=== PATIENT | male | born 1930 | race Caucasian/White ===

== ENCOUNTER → 2016-12-19 | Outpatient (CLI) | payer MEDICARE, BC ==
[2016-12-19 17:09] LABS: Blood Urea Nitrogen 21 mg/dL (9-20)
[2016-12-19 17:14] LABS: Non-African American GFR(MDRD) >60 (>60 ml/min/1.73 sqM)
--- NOTE | 2016-12-20 08:21 | CT ---
EXAMINATION TYPE: CT ChestAbdPelvis w con DATE OF EXAM: 12/19/2016 COMPARISON: NONE HISTORY: Approximately 30 lb weight loss x [address] DLP: 1123.00 mGycm Automated exposure control for dose reduction was used. CONTRAST: CT scan of the chest, abdomen and pelvis is performed with Oral Contrast and with IV Contrast, patien t injected with 100 mL of Omnipaque 300. FINDINGS: LUNGS: Bandlike parenchymal densities at the left lung base likely reflects scarring. No pleural or p ericardial effusion. Soft tissue nodule within the right middle lobe on axial image 40 measures appro ximately 5 to 6 mm, additional right upper lobe nodule on axial image 30 shows a similar appearance. Probable retained secretions noted within the trachea on axial image 17. MEDIASTINUM: There are no greater than 1 cm hilar or mediastinal lymph nodes. Calcified subcarinal no de is present. No pericardial effusion is seen. AORTA: There are coronary artery calcifications, aortic calcifications. OTHER: Patient is post median sternotomy. Mild pectus deformity is present. LIVER/GB: Cystic foci are present within the liver, the largest in the left lobe measures 2.7 cm. The re are approximately 4-5 in number. Gallbladder is unremarkable. PANCREAS: No significant abnormality is seen. SPLEEN: No significant abnormality is seen. ADRENALS: No significant abnormality is seen. KIDNEYS: Cystic foci are present bilaterally, 4.1 cm exophytic cyst at the midpole and the left kidne y is somewhat lobular, lower pole cystic focus measures 19 mm, upper pole anteriorly shows a cystic f ocus measuring 12 mm.. The right kidney shows midpole exophytic cystic focus measuring 2.8 cm. No sto kun or hydronephrosis. REPRODUCTIVE ORGANS: The prostate is markedly enlarged and shows an inferior impression on the bladde r. BOWEL: Nonspecific wall thickening present at the distal rectum. Diverticular change present in the sigmoid colon. FREE AIR: No Free Air visible. ASCITES: None seen. RETROPERITONEAL ADENOPATHY: No retroperitoneal adenopathy is seen. LYMPH NODES: No greater than 1 cm abdominal or pelvic lymph nodes are appreciated. URINARY BLADDER: There is bladder wall thickening presumably due to chronic outlet obstruction. Sweetie elate to exclude cystitis. PELVIC ADENOPATHY: None visualized. OSSEOUS STRUCTURES: Degenerative disc changes, spinal curvature noted in the visualized spine. Some mild osteoarthritic change noted within the hips. IMPRESSION: Correlate to exclude abnormal thickening of the rectum, bowel surveillance has not been p erformed then it should be considered. Diverticulosis. Coronary artery disease. Indeterminate pulmona ry nodules could be related to old granulomatous disease, consider follow-up. Additional findings abo ve.
== END | disposition home or self-care (01) ==
LOC: RADCTMAIN 16:24
PROVIDERS: ATTEND Internal Medicine
DX: K57.90 Diverticulosis of intestine, part unspecified, without perforation or abscess without bleeding (principal); I25.10 Atherosclerotic heart disease of native coronary artery without angina pectoris
CPT/HCPCS: 82565; 84520; 71260; 74177; 36415; Q9967

== ENCOUNTER → 2016-12-29 | Outpatient (CLI) | payer MEDICARE, BC ==
--- NOTE | 2016-12-29 16:04 | US ---
EXAMINATION TYPE: US kidneys/renal and bladder DATE OF EXAM: 12/29/2016 COMPARISON: CT chest abdomen and pelvis dated 817. CLINICAL HISTORY: N28.1 Multiple renal cysts. Patient had recent CT due to unexplained weight loss an d found multiple renal cysts, patient has no symptoms related to cysts. EXAM MEASUREMENTS: Right Kidney: 9.0 x 4.7 x 4.8 cm Left Kidney: 9.6 x 4.9 x 4.4 cm Right Kidney: multiple cysts seen, largest inferior pole = 2.5cm Left Kidney: multiple cyst seen, largest midpole exophytic cyst = 3.0cm Bladder: wnl Bilateral Jets seen: no There is no evidence for hydronephrosis at this point in time. No nephrolithiasis is seen. No alida s are identified. The urinary bladder is anechoic. Bilateral ureteral jets are seen. IMPRESSION: Bilateral cortical renal cysts as seen on the prior CT with no evidence of hydronephrosis or nephroli thiasis.
== END | disposition home or self-care (01) ==
LOC: RADUSWWP 14:44
PROVIDERS: ATTEND Internal Medicine
DX: N28.1 Cyst of kidney, acquired (principal)
CPT/HCPCS: 76770

== ENCOUNTER → 2017-02-12 | Outpatient (CLI) | payer MEDICARE, BC ==
--- NOTE | 2017-02-12 15:03 | NM ---
EXAMINATION TYPE: NM bone scan whole body DATE OF EXAM: 02/12/2017 COMPARISON: CT chest abdomen and pelvis December 19, 2016 HISTORY: Abnormal unexplained weight loss (R 63.4) per order. Left-sided rib pain with deep inspirati on per patient, history of fall injury one week ago per patient. Delayed whole-body scanning was performed following the injection of 19.5 mCi Tc 99m MDP. Images acq uired 3.75 hours post injection. Whole body images as well as spot images of the thorax abdomen and p jazzy are acquired in several projections. FINDINGS: There is increased radiotracer uptake involving lateral left lower likely ninth rib, acute fracture i s suspected given patient's history at this level. Correlate clinically with physical exam and possib ly dedicated rib series x-ray if desired. There is slight scoliotic curvature in the spine redemonstrated. Mild uptake at areas in the thoracic and lumbar spine is felt to correspond to areas of increased degenerative change. Injection site in the right elbow is noted. IMPRESSION: No suspicious scintigraphic radiotracer uptake to suggest metastatic disease to the bone. Other findings as noted above.
== END ==
LOC: RADNMMAIN 09:58
PROVIDERS: ATTEND Internal Medicine
DX: R63.4 Abnormal weight loss (principal)
CPT/HCPCS: 78306; A9503

== ENCOUNTER 2018-02-20 18:48 | Inpatient (IN) | payer MEDICARE, BC ==
[2018-02-20] MEDS ORDERED: SODIUM CHLORIDE 0.9% 500 ML 500 ML IV STA (19:20)
--- NOTE | 2018-02-20 19:29 | ED ---
SOB HPI - General Source: patient Mode of arrival: ambulatory Limitations: no limitations <Gisele Townsend - Last Filed: 02/20/18 22:55> <Simba Bermudez - Last Filed: 02/22/18 08:06> - General Chief Complaint: Shortness of Breath Stated Complaint: ashley, lethargy Time Seen by Provider: 02/20/18 18:56 - History of Present Illness Initial Comments: 87-year-old male patient with past medical history significant for coronary artery disease status post CABG and subsequent stenting presents to the emergency department today for complaints of progressive dyspnea. The patient states that he has been having increased shortness of breath over the last month and 2 weeks ago was diagnosed with pneumonia. States he has completed 2 courses of antibiotics and has been following with his primary care physician but he seems to be getting worse. Patient states he initially was having a cough that has resolved. Patient states he does not have an appetite and has been becoming more weak. Patient denies any chest pain, abdominal pain, nausea , vomiting, constipation, or diarrhea. Denies any hematuria, dysuria, urinary frequency, urinary urgency. Patient denies any recent rash, fever, chills, back pain, numbness, tingling, dizziness, headache, visual changes, or any other complaints. (Gisele Townsend) - Related Data Home Medications Medication Instructions Recorded Confirmed Aspirin 325 mg PO HS 02/20/18 02/20/18 Levothyroxine Sodium 100 mcg PO DAILY 02/20/18 02/20/18 Memantine [Namenda] 10 mg PO BID 02/20/18 02/20/18 Multivitamins, Thera [Multivitamin 1 tab PO HS 02/20/18 02/20/18 (formulary)] [employer]-3 Fatty Acids/Fish Oil [Fish 1 cap PO BID 02/20/18 02/20/18 Oil 1,000 mg Softgel] Sertraline HCl [Zoloft] 25 mg PO DAILY 02/20/18 02/20/18 Vision Vitamin(Unknown) 1 tab PO BID 02/20/18 02/20/18 Allergies Allergy/AdvReac Type Severity Reaction Status Date / Time No Known Allergies Allergy Unverified 02/20/18 19:29 Review of Systems ROS Other: All systems not noted in ROS Statement are negative. <Gisele Townsend - Last Filed: 02/20/18 22:55> ROS Other: All systems not noted in ROS Statement are negative. <Simba Bermudez - Last Filed: 02/22/18 08:06> ROS Statement: Those systems with pertinent positive or pertinent negative responses have been documented in the HPI. Past Medical History Past Medical History: Coronary Artery Disease (CAD), Pneumonia History of Any Multi-Drug Resistant Organisms: None Reported Past Surgical History: Coronary Bypass/CABG, Heart Catheterization, Heart Catheterization With Stent Past Psychological History: No Psychological Hx Reported Smoking Status: Former smoker Past Alcohol Use History: None Reported Past Drug Use History: None Reported <Gisele Townsend - Last Filed: 02/20/18 22:55> General Exam Limitations: no limitations General appearance: alert, in no apparent distress, other (This is a well- developed, thin appearing elderly male patient in no acute distress. Vital signs upon presentation are temperature 98.0 degrees Fahrenheit, pulse 61, respirations 22, blood pressure 142/75, pulse ox 98% on room air.) Eye exam: Present: normal appearance, PERRL, EOMI. Absent: scleral icterus, conjunctival injection, periorbital swelling ENT exam: Present: normal exam, normal oropharynx, mucous membranes moist Respiratory exam: Present: normal lung sounds bilaterally. Absent: respiratory distress, wheezes, rales, rhonchi, stridor Cardiovascular Exam: Present: regular rate, irregular rhythm, normal heart sounds. Absent: systolic murmur, diastolic murmur, rubs, gallop, clicks GI/Abdominal exam: Present: soft, normal bowel sounds. Absent: distended, tenderness, guarding, rebound, rigid Neurological exam: Present: alert, oriented X3, CN II-XII intact Psychiatric exam: Present: normal affect, normal mood Skin exam: Present: warm, dry, intact, normal color. Absent: rash <Gisele Townsend - Last Filed: 02/20/18 22:55> Vital Signs 02/20/18 02/20/18 02/20/18 18:51 19:55 21:10 Temperature 98.0 F Pulse Rate 61 52 L Respiratory 22 18 19 Rate Blood Pressure 142/75 143/73 O2 Sat by Pulse 98 100 Oximetry 02/20/18 22:10 Temperature Pulse Rate 58 L Respiratory 18 Rate Blood Pressure 158/98 O2 Sat by Pulse 99 Oximetry Medical Decision Making - Lab Data Result diagrams: 02/20/18 19:46 02/20/18 19:46 - EKG Data -: EKG Interpreted by Me - Radiology Data Radiology results: report reviewed, image reviewed <Gisele Townsend - Last Filed: 02/20/18 22:55> - Lab Data Result diagrams: 02/20/18 19:46 02/20/18 19:46 <Simba Bermudez - Last Filed: 02/22/18 08:06> - Medical Decision Making 87-year-old male patient presented to the emergency department today for evaluation of progressive dyspnea. Physical examination is relatively unremarkable. Labs reviewed and are unremarkable. Chest x-ray showed mild infiltrate in the left posterior lung base. Patient has been treated with 2 courses of antibiotics by his primary care physician for pneumonia. Given evidence of pneumonia on x-ray we will bring patient in to the hospital and treat for failed outpatient treatment community acquired pneumonia. Did discuss findings and results with the patient. Discussed plan with the patient. Family and patient verbalize understanding and agree with this plan. (Gisele Townsend) I saw this patient in conjunction with the physician advertising assistant manager. I performed independent history and physical exam. Agree with case management. (Simba Bermudez) - Lab Data Lab Results 02/20/18 02/20/18 02/20/18 Range/Units 19:46 19:46 19:46 WBC 7.4 (3.8-10.6) k/uL RBC 3.75 L (4.30-5.90) m/uL Hgb 11.8 L (13.0-17.5) gm/dL Hct 35.5 L (39.0-53.0) % MCV 94.7 (80.0-100.0) fL MCH 31.4 (25.0-35.0) pg MCHC 33.2 (31.0-37.0) g/dL RDW 13.1 (11.5-15.5) % Plt Count 326 (150-450) k/uL Neutrophils % 59 % Lymphocytes % 28 % Monocytes % 7 % Eosinophils % 2 % Basophils % 1 % Neutrophils # 4.4 (1.3-7.7) k/uL Lymphocytes # 2.0 (1.0-4.8) k/uL Monocytes # 0.5 (0-1.0) k/uL Eosinophils # 0.2 (0-0.7) k/uL Basophils # 0.1 (0-0.2) k/uL PT (9.0-12.0) sec INR (<1.2) APTT (22.0-30.0) sec D-Dimer (<0.60) mg/L FEU Sodium 141 (137-145) mmol/L Potassium 4.9 (3.5-5.1) mmol/L Chloride 107 (98-107) mmol/L Carbon Dioxide 27 (22-30) mmol/L Anion Gap 7 mmol/L BUN 21 H (9-20) mg/dL Creatinine 1.21 (0.66-1.25) mg/dL Est GFR (CKD-EPI)AfAm 61 (>60 ml/min/1.73 sqM) Est GFR (CKD-EPI)NonAf 53 (>60 ml/min/1.73 sqM) Glucose 83 (74-99) mg/dL Calcium 10.0 (8.4-10.2) mg/dL Total Bilirubin 0.3 (0.2-1.3) mg/dL AST 22 (17-59) U/L ALT 18 L (21-72) U/L Alkaline Phosphatase 63 (38-126) U/L Total Creatine Kinase 42 L (55-170) U/L CK-MB (CK-2) 0.6 (0.0-2.4) ng/mL CK-MB (CK-2) Rel Index 1.4 Troponin I 0.019 (0.000-0.034) ng/mL NT-Pro-B Natriuret Pep pg/mL Total Protein 6.7 (6.3-8.2) g/dL Albumin 3.6 (3.5-5.0) g/dL Urine Color Urine Appearance (Clear) Urine pH (5.0-8.0) Ur Specific [place] (1.001-1.035) Urine Protein (Negative) Urine Glucose (UA) (Negative) Urine Ketones (Negative) Urine Blood (Negative) Urine Nitrite (Negative) Urine Bilirubin (Negative) Urine Urobilinogen (<2.0) mg/dL Ur Leukocyte Esterase (Negative) 02/20/18 02/20/18 02/20/18 Range/Units 19:46 19:46 21:20 WBC (3.8-10.6) k/uL RBC (4.30-5.90) m/uL Hgb (13.0-17.5) gm/dL Hct (39.0-53.0) % MCV (80.0-100.0) fL MCH (25.0-35.0) pg MCHC (31.0-37.0) g/dL RDW (11.5-15.5) % Plt Count (150-450) k/uL Neutrophils % % Lymphocytes % % Monocytes % % Eosinophils % % Basophils % % Neutrophils # (1.3-7.7) k/uL Lymphocytes # (1.0-4.8) k/uL Monocytes # (0-1.0) k/uL Eosinophils # (0-0.7) k/uL Basophils # (0-0.2) k/uL PT 10.4 (9.0-12.0) sec INR 1.1 (<1.2) APTT 26.6 (22.0-30.0) sec D-Dimer 0.31 (<0.60) mg/L FEU Sodium (137-145) mmol/L Potassium (3.5-5.1) mmol/L Chloride (98-107) mmol/L Carbon Dioxide (22-30) mmol/L Anion Gap mmol/L BUN (9-20) mg/dL Creatinine (0.66-1.25) mg/dL Est GFR (CKD-EPI)AfAm (>60 ml/min/1.73 sqM) Est GFR (CKD-EPI)NonAf (>60 ml/min/1.73 sqM) Glucose (74-99) mg/dL Calcium (8.4-10.2) mg/dL Total Bilirubin (0.2-1.3) mg/dL AST (17-59) U/L ALT (21-72) U/L Alkaline Phosphatase (38-126) U/L Total Creatine Kinase (55-170) U/L CK-MB (CK-2) (0.0-2.4) ng/mL CK-MB (CK-2) Rel Index Troponin I (0.000-0.034) ng/mL NT-Pro-B Natriuret Pep 886 pg/mL Total Protein (6.3-8.2) g/dL Albumin (3.5-5.0) g/dL Urine Color Yellow Urine Appearance Clear (Clear) Urine pH 7.0 (5.0-8.0) Ur Specific [place] 1.009 (1.001-1.035) Urine Protein Negative (Negative) Urine Glucose (UA) Negative (Negative) Urine Ketones Negative (Negative) Urine Blood Negative (Negative) Urine Nitrite Negative (Negative) Urine Bilirubin Negative (Negative) Urine Urobilinogen <2.0 (<2.0) mg/dL Ur Leukocyte Esterase Negative (Negative) - EKG Data EKG Comments: EKG obtained in 1935 shows sinus rhythm with a first-degree AV block, right bundle branch block, ventricular rate of 62, W[place] interval 378, QRS duration 122, QT 444, QTC 450. No evidence of ST elevation or depression. (Gisele Townsend ) - Radiology Data Two-view x-ray of the chest is obtained. This no heart failure nor confluent pneumonic infiltrate. There is some mild infiltrate at the left posterior lung base. Lungs are clear consolidation. There are sternal wires. There are chest leads. Impression by Dr. Schaeffer shows small infiltrate or pleural reaction at the left posterior lung base. No heart failure. (Gisele Townsend ) Disposition Decision to Admit Reason: Admit from EC Decision Date: 02/20/18 Decision Time: 21:48 <Gisele Townsend - Last Filed: 02/20/18 22:55> <Simba Bermudez - Last Filed: 02/22/18 08:06> Clinical Impression: Community acquired pneumonia, Failure of outpatient treatment, Dyspnea Disposition: ADMITTED IP TO THIS HOSP Condition: Serious
[2018-02-20 19:58] LABS: Basophils # (A) 0.1 k/uL (0-0.2); Basophils % (A) 1 %; Eosinophils # (A) 0.2 k/uL (0-0.7); Eosinophils % (A) 2 %; HCT 35.5 % (39.0-53.0); HGB 11.8 gm/dL (13.0-17.5); Lymphocytes % (A) 28 %; MCH 31.4 pg (25.0-35.0); MCHC 33.2 g/dL (31.0-37.0); MCV 94.7 fL (80.0-100.0); Mean Platelet Volume 6.4; Monocytes # (A) 0.5 k/uL (0-1.0); Monocytes % (A) 7 %; Neutrophils # (A) 4.4 k/uL (1.3-7.7); Neutrophils % (A) 59 %; Platelet Count 326 k/uL (150-450); RBC 3.75 m/uL (4.30-5.90); RDW 13.1 % (11.5-15.5); WBC 7.4 k/uL (3.8-10.6)
[2018-02-20 20:07] LABS: Albumin 3.6 g/dL (3.5-5.0); Potassium 4.9 mmol/L (3.5-5.1); Total Bilirubin 0.3 mg/dL (0.2-1.3); Total Protein 6.7 g/dL (6.3-8.2)
[2018-02-20 20:13] LABS: D-Dimer 0.31 mg/L FEU (<0.60); INR 1.1 (<1.2); Partial Thromboplastin Time 26.6 sec (22.0-30.0); Prothrombin Time 10.4 sec (9.0-12.0)
--- NOTE | 2018-02-20 20:13 | XR ---
EXAMINATION TYPE: XR chest 2V DATE OF EXAM: 02/20/2018 COMPARISON: NONE HISTORY: Short of breath TECHNIQUE: Frontal and lateral views of the chest are obtained. FINDINGS: There is no heart failure nor confluent pneumonic infiltrate. There is some mild infiltrat e at left posterior lung base. Lungs are clear of consolidation. There are sternal wires. There are c hest leads. IMPRESSION: Small infiltrate or pleural reaction at the left posterior lung base. No heart failure.
[2018-02-20 20:22] LABS: Creatine Kinase MB 0.6 ng/mL (0.0-2.4); Troponin I 0.019 ng/mL (0.000-0.034)
[2018-02-20 21:26] LABS: Appearance,Urine Clear (Clear); Bilirubin,Urine Negative (Negative); Blood,Urine Negative (Negative); Color,Urine Yellow; Glucose,Urine (UA) Negative (Negative); Ketones,Urine Negative (Negative); Leukocyte Esterase,Urine Negative (Negative); Nitrite,Urine Negative (Negative); Protein,Urine Negative (Negative); Specific Gravity,Urine 1.009 (1.001-1.035); Urobilinogen,Urine <2.0 mg/dL (<2.0)
[2018-02-20] MEDS ORDERED: AZITHROMYCIN 500 MG in SODIUM CHLORIDE 0.9% 250 ML IVPB STA (21:38)
[2018-02-20] MEDS ORDERED: PNEUMONIA PROTOCOL UTILIZED 1 EACH MISC PO PRN (21:38)
[2018-02-21 04:40] VITALS: BMI 17.1
[2018-02-21] MEDS: LEVOTHYROXINE 100 MCG TAB PO SCH (05:44)
[2018-02-21] MEDS: MEMANTINE 10 MG TAB PO SCH ×2 (08:51→20:58)
[2018-02-21] MEDS: SERTRALINE 25 MG TAB PO SCH (08:52)
[2018-02-21] MEDS ORDERED: NON-FORMULARY DRUG (Omega-3 Fatty Acids/Fish Oil [Fish Oil 1,000 Mg Softgel] 1 CAP) PO SCH (09:00)
--- NOTE | 2018-02-21 14:23 | P.CNPUL ---
History of Present Illness Consult date: 02/21/18 Requesting physician: Malcolm Mcknight Reason for consult: dyspnea, abnormal CXR/CT Chief complaint: Shortness of breath, cough, congestion History of present illness: This is a very pleasant 87-year-old gentleman who follows with Dr. Benavidez as his primary care physician. He has a history of coronary artery disease with previous coronary artery bypass grafting and subsequent stent placements, hypothyroidism, dementia, depression. He has a very remote history of chronic tobacco dependence. No history of COPD/emphysema/asthma. A computed tomography scan from 2017 revealed indeterminate pulmonary nodules in the right middle and upper lobes related to old granulomatous disease. There was bandlike parenchymal densities in the left lung base likely reflecting scarring. He has not been seen by a [facility] consultant in the past. Over the past month he has been having progressive shortness of breath with cough and congestion. He's been treated 2 in the outpatient setting by his PCP without much improvement. He presented here to the emergency room with continued shortness of breath, dry nonproductive cough, progressive weakness and dyspnea on minimal exertion. He is quite active normally and walks 5 miles a day. Now he is quite short of breath just been up to the bathroom and back. Chest x-ray shows a small infiltrate or pleural reaction to the left posterior lung base which is similar compared to previous. No areas of consolidation. He is maintaining O2 saturations in the 90s on room air. He's been afebrile. Hemodynamically stable. White count 7.4. Hemoglobin 11.5. Creatinine 1.21. ProBNP 886. Urinalysis negative. He has been initiated on ceftriaxone and azithromycin. Review of Systems Constitutional: Reports fatigue, Reports poor appetite, Reports weakness Eyes: bilateral decreased vision Ears: bilateral: decreased hearing Ears, nose, mouth and throat: Denies headache, Denies sore throat Cardiovascular: Reports decreased exercise tolerance, Reports dyspnea on exertion, Reports shortness of breath Respiratory: Reports congestion, Reports cough, Reports dyspnea Gastrointestinal: Denies abdominal pain, Denies diarrhea, Denies nausea, Denies vomiting Genitourinary: Reports as per HPI Musculoskeletal: Reports gait dysfunction, Reports limitation of motion Integumentary: Reports color changes Neurological: Reports gait dysfunction, Reports memory loss Psychiatric: Reports anxiety, Reports depression, Reports memory loss Endocrine: Denies fatigue, Denies weight change Hematologic/Lymphatic: Reports as per HPI Allergic/Immunologic: Reports as per HPI Past Medical History Past Medical History: Coronary Artery Disease (CAD), Pneumonia Additional Past Medical History / Comment(s): Hard of hearing (make sure you face patient when talking/he can see your mouth, otherwise he can't hear you). History of Any Multi-Drug Resistant Organisms: None Reported Past Surgical History: Coronary Bypass/CABG, Heart Catheterization With Stent Additional Past Surgical History / Comment(s): Thymus gland removal, heart cath w/ 2 stents (while in [place]). Past Anesthesia/Blood Transfusion Reactions: No Reported Reaction Date of Last Stent Placement:: Unknown Past Psychological History: No Psychological Hx Reported Smoking Status: Former smoker Past Alcohol Use History: None Reported Additional Past Alcohol Use History / Comment(s): Pt. lives at home with . Goes to [place] [facility] for regular doctor visits. Able to carry out ADLs independently. Past Drug Use History: None Reported Medications and Allergies Home Medications Medication Instructions Recorded Confirmed Type Aspirin 325 mg PO HS 02/20/18 02/20/18 History Levothyroxine Sodium 100 mcg PO DAILY 02/20/18 02/20/18 History Memantine [Namenda] 10 mg PO BID 02/20/18 02/20/18 History Multivitamins, Thera [Multivitamin 1 tab PO HS 02/20/18 02/20/18 History (formulary)] [place]-3 Fatty Acids/Fish Oil [Fish 1 cap PO BID 02/20/18 02/20/18 History Oil 1,000 mg Softgel] Sertraline HCl [Zoloft] 25 mg PO DAILY 02/20/18 02/20/18 History Vision Vitamin(Unknown) 1 tab PO BID 02/20/18 02/20/18 History Allergies Allergy/AdvReac Type Severity Reaction Status Date / Time No Known Allergies Allergy Unverified 02/20/18 19:29 Physical Exam Vitals: Vital Signs Temp Pulse Pulse Resp BP BP Pulse Ox 02/21/18 06:18 97.1 F L 56 L 20 115/56 96 02/21/18 00:00 96 02/20/18 23:31 98.6 F 72 18 138/96 97 02/20/18 22:10 58 L 18 158/98 99 02/20/18 21:10 19 02/20/18 19:55 52 L 18 143/73 100 02/20/18 18:51 98.0 F 61 22 142/75 98 Intake and Output 02/20/18 02/21/18 02/21/18 22:59 06:59 14:59 Intake Total 100 Balance 100 Intake: Oral 100 Other: Voiding Method Toilet Urinal Weight 53.524 kg 52.5 kg 52.5 kg - Constitutional General appearance: average body habitus, cooperative, mild distress - EENT Eyes: EOMI, PERRLA ENT: hard of hearing Ears: bilateral: normal - Neck Neck: normal ROM Carotids: bilateral: upstroke normal Thyroid: bilateral: normal size - Respiratory Respiratory: bilateral: CTA - Cardiovascular Rhythm: regular Heart sounds: normal: S1, S2 - Gastrointestinal General gastrointestinal: normal bowel sounds - Genitourinary Voiding without difficulty - Integumentary Integumentary: decreased turgor - Neurologic Neurologic: CNII-XII intact - Musculoskeletal Musculoskeletal: generalized weakness - Psychiatric Psychiatric: A&O x's 3, appropriate affect, intact judgment & insight Results - Laboratory Findings CBC and BMP: 02/20/18 19:46 02/20/18 19:46 PT/INR, D-dimer PT 10.4 sec (9.0-12.0) 02/20/18 19:46 INR 1.1 (<1.2) 02/20/18 19:46 D-Dimer 0.31 mg/L FEU (<0.60) 02/20/18 19:46 Abnormal lab findings: Abnormal Labs 02/20/18 02/20/18 02/20/18 19:46 19:46 19:46 RBC 3.75 L Hgb 11.8 L Hct 35.5 L BUN 21 H ALT 18 L Total Creatine Kinase 42 L - Diagnostic Findings Chest x-ray: image reviewed Assessment and Plan Assessment: Impression: #1 Dyspnea on exertion of unclear etiology. The patient does have some parenchymal/scarring of the left lung base. Doubt pneumonia. He's been afebrile. No leukocytosis. Failed outpatient treatment 2. Chronic changes noted in the left lung base on a computed tomography scan 1 year ago. #2 Pulmonary nodules in the right mid and upper lobe noted in 2017. #3 Coronary artery disease with previous coronary artery bypass grafting and stent placements. #4 Ischemic cardiomyopathy with ejection fraction 40-45% in 2014. ProBNP 886. #5 Hypothyroidism. #6 Dementia. #7 History of depression. Plan: The patient was seen and evaluated by Dr. Guajardo. Chest x-ray and labs reviewed. He may benefit from a repeat computed tomography scan of the chest. We'll continue ceftriaxone and azithromycin. Add bronchodilators. Increase his activity as tolerated. We'll continue to follow. I, the cosigning physician, performed a history & physical examination of the patient. Lungs sounds are clear. Maintaining good O2 saturations in the 90s on room air. I discussed the assessment and plan of care with my nurse practitioner, Briana North. I attest to the above consultation as dictated by her. Time with Patient: Greater than 30
--- NOTE | 2018-02-21 15:08 | XR ---
EXAMINATION TYPE: XR chest 2V DATE OF EXAM: 02/21/2018 COMPARISON: Chest x-ray from yesterday. CT from December 19, 2016. HISTORY: Pneumonia progress study. TECHNIQUE: Frontal and lateral views of the chest are obtained. FINDINGS: Post-CABG changes with mediastinal clips and sternal wires is redemonstrated. The cardiac s ilhouette size is stable and upper limits of normal with atherosclerotic thoracic aorta. There is pe rsistent left basilar opacity favoring scarring and/or atelectasis. There is no new suspicious focal airspace opacity or pleural effusion identified bilaterally. Some pleural scarring left lung base is redemonstrated. Background chronic emphysematous change is noted. Old fracture deformity right proxim al humerus is suspected. IMPRESSION: Chronic changes with persistent left basilar scarring and/or atelectasis. No new acute i nfiltrate is seen.
--- NOTE | 2018-02-21 18:34 | ECHOF ---
Referral Reason:Dypnea MEASUREMENTS -------- HEIGHT: 175.3 cm WEIGHT: 52.2 kg BP: 149/4 RVIDd: 3.2 cm (< 3.3) IVSd: 1.2 cm (0.6 - 1.1) LVIDd: 4.3 cm (3.9 - 5.3) LVPWd: 1.2 cm (0.6 - 1.1) IVSs: 1.7 cm LVIDs: 3.5 cm LVPWs: 1.7 cm LA Diam: 3.8 cm (2.7 - 3.8) LAESV Index (A-L): 32.12 ml/m Ao Diam: 3.5 cm (2.0 - 3.7) AV Cusp: 1.8 cm (1.5 - 2.6) MV EXCURSION: 16.920 mm (> 18.000) MV EF SLOPE: 50 mm/s (70 - 150) EPSS: 1.3 cm MV E Nathan: 0.81 m/s MV DecT: 212 ms MV A Nathan: 1.00 m/s MV E/A Ratio: 0.81 AV maxP.40 mmHg AV maxP.40 mmHg AV meanP.52 mmHg AR PHT: 735 ms RAP: 5.00 mmHg RVSP: 27.36 mmHg FINDINGS -------- Undetermined rhythm. This was a technically adequate study. The left ventricular size is normal. There is borderline concentric left ventricular hypertrophy. Overall left ventricular systolic function is moderately impaired with, an EF between 35 - 40 %. B aneesh inferior LV wall motion is akinetic. The right ventricle is normal in size. LA is midly dilated 29-33ml/m2. The right atrium is normal in size. There is mild aortic valve sclerosis. Trace to mild aortic regurgitation. The mitral valve leaflets are mildly thickened. Mild mitral annular calcification present. Mild m itral regurgitation is present. Mild tricuspid regurgitation present. Right ventricular systolic pressure is normal at < 35 mmHg. Trace/mild (physiologic) pulmonic regurgitation. The aortic root size is normal. Normal inferior vena cava with normal inspiratory collapse consistent with estimated right atrial pre ssure of 5 mmHg. There is no pericardial effusion. CONCLUSIONS -------- 1. Undetermined rhythm. 2. This was a technically adequate study. 3. The left ventricular size is normal. 4. There is borderline concentric left ventricular hypertrophy. 5. The right ventricle is normal in size. 6. LA is midly dilated 29-33ml/m2. 7. The right atrium is normal in size. 8. There is mild aortic valve sclerosis. 9. Trace to mild aortic regurgitation. 10. The mitral valve leaflets are mildly thickened. 11. Mild mitral annular calcification present. 12. Mild mitral regurgitation is present. 13. Mild tricuspid regurgitation present. 14. Right ventricular systolic pressure is normal at < 35 mmHg. 15. Trace/mild (physiologic) pulmonic regurgitation. 16. The aortic root size is normal. 17. Normal inferior vena cava with normal inspiratory collapse consistent with estimated right atrial pressure of 5 mmHg. 18. There is no pericardial effusion. BARREL MARKER: Serina Gomez RDCS
--- NOTE | 2018-02-21 18:54 | NM ---
EXAMINATION TYPE: NM pul vent and perfuse DATE OF EXAM: 02/21/2018 COMPARISON: NONE HISTORY: Short of breath TECHNIQUE: Utilizing inhalation of 69.2 mCi Tc 99m DTPA aerosol and intravenous injection of 5.1 mCi of Tc 99m MAA, ventilation and perfusion images are acquired post injection in multiple projections. FINDINGS: There is a matched subsegmental defect in the posterior basal segment left lower lobe. There are smal l subsegmental matched defects at the right posterior lung base. There is no ventilation/perfusion mi smatch. IMPRESSION: Bilateral matched defects consistent with airway disease. There is a low probability of pulmonary emb olism.
[2018-02-21] MEDS: MULTIVITAMINS, THERA 1 EACH TAB PO SCH (20:58)
[2018-02-21] MEDS ORDERED: ASPIRIN 325 MG TAB PO SCH (21:00)
[2018-02-21] MEDS ORDERED: LACTATED RINGERS 1,000 ML IV SCH (21:15)
[2018-02-21] MEDS: IPRATROPIUM-ALBUTEROL 3 ML NEB INHALATION SCH (21:23)
[2018-02-21] MEDS: ENOXAPARIN 40 MG/0.4 ML SYRINGE SQ SCH (21:49)
[2018-02-21] MEDS: CARVEDILOL 3.125 MG TAB PO SCH (21:50)
[2018-02-21] MEDS: CEFDINIR 300 MG CAP PO SCH (21:50)
[2018-02-21] MEDS ORDERED: AZITHROMYCIN 500 MG TAB PO SCH (22:00)
--- NOTE | 2018-02-22 00:02 | HP ---
HISTORY AND PHYSICAL DATE OF ADMISSION: 02/20/2018. DATE OF SERVICE: 02/21/2018. PRESENTING COMPLAINT: Weak and tired. HISTORY OF PRESENTING COMPLAINT: A very pleasant 87-year-old patient who follows with Dr. David Benavidez. 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 The patient is otherwise normally pretty active. The patient was treated with Levaquin by Dr. Benavidez. The patient had been having cough, minimal phlegm. No fever. No chills. Appetite had been okay, but patient is noticing that he is getting really tired going across the room, run down. There were no fevers, no chills, no edema. When patient presented to the ER he got some fluids and did feel a bit better after that. Appetite has started to perk up. The patient's daughter was at the bedside during the history taking. No sputum production. REVIEW OF SYSTEMS: CONSTITUTIONAL: Weak and tired. HEENT: Hard of hearing. RESPIRATORY: No phlegm. As above. CARDIOVASCULAR: No chest pain. No edema. GASTROINTESTINAL: None. GENITOURINARY: None. MUSCULOSKELETAL: Some pain in the joints. DERMATOLOGICAL, HEMATOLOGIC, LYMPHATICS: None. PSYCHIATRY: None. NEUROLOGICAL: None. PAST MEDICAL HISTORY: Coronary artery disease, recent pneumonia, hard of hearing. PAST SURGICAL HISTORY: Coronary bypass, cardiac cath with stent, removed, heart cath with 2 stents in [place]. SOCIAL HISTORY: . Smoked in the remote past. Rather pretty active. FAMILY HISTORY: Reviewed, noncontributory to presentation. HOME MEDICATIONS: 1. Vision vitamin 1 tablet p.o. b.i.d. 2. Zoloft 25 mg p.o. daily. 3. Fish oil 1000 mg 1 capsule p.o. b.i.d. 4. Multivitamin 1 tablet p.o. at bedtime. 5. Namenda 10 mg p.o. b.i.d. 6. Levothyroxine 100 mcg p.o. daily. 7. Aspirin 325 mg p.o. at bedtime. ALLERGIES: None. PHYSICAL EXAMINATION: VITAL SIGNS: On examination, vital signs on presentation, temperature 98, pulse 61, respiration 22, blood pressure 142/75, pulse ox 98% on room air. GENERAL APPEARANCE: General appearance. BMI 17.1. Lying in bed, tired-appearing. EYES: Pupils equal. Conjunctivae normal. HEENT: External ears and nose normal. Oral cavity normal. NECK: JVD not raised. Mass not palpable. Respiratory effort normal. LUNGS: Decreased breath sounds. CARDIOVASCULAR: 1st and 2nd sounds normal. No edema. ABDOMEN: Soft, nontender. Liver and spleen not palpable. LYMPHATIC: No lymph node palpable in the neck or axillae. PSYCHIATRY: Alert and oriented x3. Mood and affect normal. NEUROLOGIC: Pupils equal. Cranial nerves grossly intact. Power and sensation grossly intact. INVESTIGATIONS: White count 7.4, hemoglobin 11.8, potassium 4.9, BUN 21, creatinine 1.29. V/Q scan shows bilateral match defects consistent with airway disease. The 2D echocardiogram shows EF of 35% to 40%. Chest x-ray film personally reviewed by me shows hyperinflation, no infiltrates. EKG tracing personally reviewed by me shows right bundle branch block. ASSESSMENT: 1. Possible acute emphysema exacerbation in a nonsmoker. Chest x-ray showing hyperinflation. The patient recently treated for pneumonia. The patient has got no sputum, no white, no fever. We will switch the patient over to oral antibiotic and treat with bronchodilator. 2. Coronary artery disease, prior history of coronary bypass. 3. Clinically dehydrated, elevated BUN, responding well to IV fluids. 4. Ischemic cardiomyopathy. BMI 35% to 40%. 5. Hypothyroidism. 6. 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 7. Depression, not otherwise specified. PLAN: We will start the patient on bronchodilators. Give gentle hydration. Will add a small dose of beta magdalena given the low ejection fraction and also a small dose of KIMANI inhibitor. Care was discussed with the daughter at the bedside. Questions were answered. MMODL / IJN: [id number] /
[2018-02-22] MEDS: LEVOTHYROXINE 100 MCG TAB PO SCH (06:02)
[2018-02-22] MEDS: IPRATROPIUM-ALBUTEROL 3 ML NEB INHALATION SCH ×4 (09:07→20:09)
[2018-02-22] MEDS: CARVEDILOL 3.125 MG TAB PO SCH ×2 (09:23→18:45)
[2018-02-22] MEDS: ASPIRIN 81 MG PO SCH (09:23)
[2018-02-22] MEDS: CEFDINIR 300 MG CAP PO SCH ×2 (09:23→20:48)
[2018-02-22] MEDS: MEMANTINE 10 MG TAB PO SCH ×2 (09:24→20:48)
[2018-02-22] MEDS: SERTRALINE 25 MG TAB PO SCH (09:24)
[2018-02-22] MEDS: LISINOPRIL 2.5 MG TAB PO SCH (09:24)
[2018-02-22 10:43] LABS: Calcium 9.2 mg/dL (8.4-10.2); Potassium 4.2 mmol/L (3.5-5.1)
--- NOTE | 2018-02-22 12:39 | P.PN ---
Subjective Progress Note Date: 02/22/18 Principal diagnosis: Dyspnea of unclear etiology This is a very pleasant 87-year-old gentleman who follows with Dr. Benavidez as his primary care physician. He has a history of coronary artery disease with previous coronary artery bypass grafting and subsequent stent placements, hypothyroidism, dementia, depression. He has a very remote history of chronic tobacco dependence. No history of COPD/emphysema/asthma. A computed tomography scan from 2017 revealed indeterminate pulmonary nodules in the right middle and upper lobes related to old granulomatous disease. There was bandlike parenchymal densities in the left lung base likely reflecting scarring. He has not been seen by a product marketing director in the past. Over the past month he has been having progressive shortness of breath with cough and congestion. He's been treated 2 in the outpatient setting by his PCP without much improvement. He presented here to the emergency room with continued shortness of breath, dry nonproductive cough, progressive weakness and dyspnea on minimal exertion. He is quite active normally and walks 5 miles a day. Now he is quite short of breath just been up to the bathroom and back. Chest x-ray shows a small infiltrate or pleural reaction to the left posterior lung base which is similar compared to previous. No areas of consolidation. He is maintaining O2 saturations in the 90s on room air. He's been afebrile. Hemodynamically stable. White count 7.4. Hemoglobin 11.5. Creatinine 1.21. ProBNP 886. Urinalysis negative. He has been initiated on ceftriaxone and azithromycin. The patient is seen again today 02/22/2018 in follow-up on the regular medical floor. He is awake and alert in no acute distress. He did have some trouble sleeping last night. Somewhat restless. Maintaining O2 saturations in the upper 90s on room air. He's been afebrile. Ventilation perfusion scan revealed low probability of pulmonary embolism. Two-dimensional echocardiogram revealed impaired left ventricular systolic function with ejection fraction 35-40%. He's been initiated on beta blockers and KIMANI inhibitor. Oral antibiotics in the form of Omnicef. Objective - Vital Signs Vital signs: Vital Signs Temp 97.8 F 02/22/18 06:28 Pulse 66 02/22/18 12:14 Resp 20 02/22/18 08:00 BP 158/73 02/22/18 06:28 Pulse Ox 98 02/22/18 09:09 Intake & Output 02/21/18 02/22/18 02/22/18 18:59 06:59 18:59 Intake Total 700 100 Balance 700 100 Weight 52.5 kg 52.5 kg Intake: Oral 700 100 Other: Voiding Method Toilet Toilet Urinal Urinal # Voids 2 2 1 - Exam - Constitutional General appearance: average body habitus, cooperative, mild distress - EENT Eyes: EOMI, PERRLA ENT: hard of hearing Ears: bilateral: normal - Neck Neck: normal ROM Carotids: bilateral: upstroke normal Thyroid: bilateral: normal size - Respiratory Respiratory: bilateral: CTA - Cardiovascular Rhythm: regular Heart sounds: normal: S1, S2 - Gastrointestinal General gastrointestinal: normal bowel sounds - Genitourinary Voiding without difficulty - Integumentary Integumentary: decreased turgor - Neurologic Neurologic: CNII-XII intact - Musculoskeletal Musculoskeletal: generalized weakness - Psychiatric Psychiatric: A&O x's 3, appropriate affect, intact judgment & insight - Labs CBC & Chem 7: 02/20/18 19:46 02/22/18 10:08 Labs: Microbiology - Last 24 Hours (Table) 02/20/18 19:46 Blood Culture - Preliminary Blood No Growth after 24 hours Assessment and Plan Assessment: Impression: #1 Dyspnea on exertion of unclear etiology. The patient does have some parenchymal/scarring of the left lung base. Doubt pneumonia. He's been afebrile. No leukocytosis. Failed outpatient treatment 2. Chronic changes noted in the left lung base on a computed tomography scan 1 year ago. VQ scan revealed low probability for PE. Echocardiogram did reveal severely impaired left ventricular systolic function with ejection fraction 35-40%. #2 Pulmonary nodules in the right mid and upper lobe noted in 2017. #3 Coronary artery disease with previous coronary artery bypass grafting and stent placements. #4 Ischemic cardiomyopathy with ejection fraction 40-45% in 2015. ProBNP 886. #5 Hypothyroidism. #6 Dementia. #7 History of depression. Plan: The patient was seen and evaluated by Dr. Guajardo. VQ scan and echocardiogram results reviewed. Beta blockers and kimani inhibitors initiated. Continue bronchodilators. Continue antibiotics empirically in the form of Omnicef. Increase his activity as tolerated. Probably home in the a.m.. Tawny, the cosigning physician, performed a history & physical examination of the patient. Lungs sounds are clear. Maintaining good O2 saturations in the 90s on room air. I discussed the assessment and plan of care with my nurse practitioner, Briana North. I attest to the above consultation as dictated by her.
--- NOTE | 2018-02-22 13:19 | CDI ---
Last Revision, April 2017 Documentation Clarification Form Date: 02/22/2018 1:11:05 PM From: Veronica CastilloSilverioELA, CCDS Admit Date: 02/20/2018 9:38:00 PM Patient Name: Simba Lopez Visit Number: [id number] Discharge Date: ATTENTION: The Clinical Documentation Specialists (CDI) and [facility] Coding Staff appreciate your assistance in clarifying documentation. Please respond to the clarification below the line at the bottom and electronically sign. The CDI & [facility] Coding staff will review the response and follow-up if needed. Please note: Queries are made part of the Legal Health Record. If you have any questions, please contact the author of this message via ITS. Dr. Irina Jj M.D.: 87 yo male, admitted with complaint of weakness & tired, cough, weight loss. Clinically dehydrated. Diagnosed with possible acute emphysema exacerbation, recent treatment for pneumonia. History/Risk Factors: CAD w/history of CABG, Ischemic cardiomyopathy, Dementia w /late onset Alzheimer's. Clinical Indicators: Per the History & Physical the patient's BMI is documented as 17.1. Dietitian consult & assessment: Underweight, 5 ft 9 in, BMI 17.1, reported 40# weight loss, appetite fair. Labs: Hgb 11.8, BUN 21, Total Protein (6.7), Albumin (3.6). Treatment: Dietary supplement, IV fl bolus, IV Azithromycin, IV Rocephin, Albuterol INH. In your professional opinion, can you please clarify if these findings signify one of the following conditions? Mild Protein-Calorie Malnutrition Moderate Protein-Calorie Malnutrition Severe Protein-Calorie Malnutrition Other condition, please specify Unable to determine Mild Protien -Calorie Malnutrition MTDD
--- NOTE | 2018-02-22 14:12 | PN ---
PROGRESS NOTE DATE OF SERVICE: 02/22/2018. PRESENTING COMPLAINT: Weak and tired. INTERVAL HISTORY: Patient admitted after being treated outpatient for pneumonia, not any pneumonia symptoms really, he is just weak and tired, felt to be dehydrated, given some IV fluids. EF has come back at 35%-40%. Started on small dose of Coreg and KIMANI inhibitor this morning. Did not sleep too well, exhausted. No cough. No shortness of breath. REVIEW OF SYSTEMS: Done for constitutional, cardiovascular, GI, pulmonary; relevant findings as above. CURRENT MEDICATIONS REVIEWED THAT INCLUDE: 1. Coreg 3.125 twice a day. 2. Zestril 2.5 mg a day. 3. Omnicef. PHYSICAL EXAMINATION: Temperature 97.8 pulse 54, respiration 20, blood pressure 158/73. pulse ox 97% on room air. GENERAL APPEARANCE: Lying in bed, tired appearing. EYES: Pupils equal, conjunctivae normal. HEENT: External appearance of nose and ears normal, oral cavity normal. NECK: JVD not raised. Mass not palpable. RESPIRATORY: Effort normal. LUNGS: Decreased breath sounds. CARDIOVASCULAR: First and second sounds, no edema. ABDOMEN: Soft, nontender. Liver and spleen not palpable. PSYCHIATRY: Alert and oriented x3. Mood and affect tired-appearing. INVESTIGATIONS: Potassium 4.2, BUN and creatinine is normal. ASSESSMENT: 1. Possible acute emphysema exacerbation in a nonsmoker with x-ray showing hyperinflation. Clinically, no symptoms of pneumonia. 2. Clinical dehydration with elevated BUN, responded well to IV fluids overnight, to be discontinued this afternoon. 3. Coronary artery, prior history of coronary bypass. 4. Ischemic cardiomyopathy and body mass index 35%-40%. 5. Hypothyroidism. 6. 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 7. Depression, not otherwise specified. 8. Sleep deprivation. PLAN: I told the patient to rest. Daughter was a bit reluctant to take him home today. Will see how he does overnight. Will get a Cardiology opinion to make sure there is no other issues going on. MMODL / IJN: [id number] /
[2018-02-22] MEDS: ENOXAPARIN 40 MG/0.4 ML SYRINGE SQ SCH (20:48)
[2018-02-22] MEDS: MULTIVITAMINS, THERA 1 EACH TAB PO SCH (20:49)
[2018-02-23] MEDS: LEVOTHYROXINE 100 MCG TAB PO SCH (06:26)
[2018-02-23] MEDS: CEFDINIR 300 MG CAP PO SCH ×2 (07:51→20:53)
[2018-02-23] MEDS: LISINOPRIL 2.5 MG TAB PO SCH (07:51)
[2018-02-23] MEDS: MEMANTINE 10 MG TAB PO SCH ×2 (07:51→20:53)
[2018-02-23] MEDS: ASPIRIN 81 MG PO SCH (07:51)
[2018-02-23] MEDS: CARVEDILOL 3.125 MG TAB PO SCH ×2 (07:51→17:21)
[2018-02-23] MEDS: SERTRALINE 25 MG TAB PO SCH (07:52)
[2018-02-23] MEDS: SPIRONOLACTONE 25 MG TAB PO SCH (07:52)
[2018-02-23] MEDS: IPRATROPIUM-ALBUTEROL 3 ML NEB INHALATION SCH ×4 (08:52→20:14)
--- NOTE | 2018-02-23 11:22 | P.CRDCN ---
History of Present Illness Consult date: 02/23/18 Chief complaint: Shortness of breath History of present illness: This is a pleasant 87-year-old gentleman who sees Dr. Hernández in the office as an outpatient with a past medical history significant for CAD and status post CABG in 1995 with unknown details at this point, was admitted to the hospital with possible pneumonia. The patient was getting treated for pneumonia as an outpatient with no improvement in his symptoms. He was experiencing symptoms of shortness of breath with exertion. Normally the patient is very active and he walk his dog fume eyes every day without any issues. Lately according to him and his 2 daughters he has been short of breath even with minimal exertion. No chest pain or chest discomfort. No dizziness or lightheadedness. And no syncope. The cardiac enzymes were checked and came in to be unremarkable. The chest x- ray did not show any acute abnormalities. The echocardiogram revealed severe lead impaired LV function with EF around 35% with unknown if the cardiomyopathy is old or new at this point. The patient was seen and evaluated by Dr. Guajardo who does not think that the patient symptoms are lung related at this point. I am concerned about severe underlying coronary artery disease and shortness of breath is angina equivalent. Getting his age, I do recommend a maximize medical treatment and conservative medical approach at this point. Having said that I am going to start the patient on oral nitrate and follow-up with him for the next 24 hours. Past Medical History Past Medical History: Coronary Artery Disease (CAD), Pneumonia Additional Past Medical History / Comment(s): Hard of hearing (make sure you face patient when talking/he can see your mouth, otherwise he can't hear you). History of Any Multi-Drug Resistant Organisms: None Reported Past Surgical History: Coronary Bypass/CABG, Heart Catheterization With Stent Additional Past Surgical History / Comment(s): Thymus gland removal, heart cath w/ 2 stents (while in [place]). Past Anesthesia/Blood Transfusion Reactions: No Reported Reaction Date of Last Stent Placement:: Unknown Past Psychological History: No Psychological Hx Reported Smoking Status: Former smoker Past Alcohol Use History: None Reported Additional Past Alcohol Use History / Comment(s): Pt. lives at home with . [facility]es [facility]. Able to carry out ADLs independently. Past Drug Use History: None Reported Medications and Allergies Home Medications Medication Instructions Recorded Confirmed Type Aspirin 325 mg PO HS 02/20/18 02/20/18 History Levothyroxine Sodium 100 mcg PO DAILY 02/20/18 02/20/18 History Memantine [Namenda] 10 mg PO BID 02/20/18 02/20/18 History Multivitamins, Thera [Multivitamin 1 tab PO HS 02/20/18 02/20/18 History (formulary)] Dobson-3 Fatty Acids/Fish Oil [Fish 1 cap PO BID 02/20/18 02/20/18 History Oil 1,000 mg Softgel] Sertraline HCl [Zoloft] 25 mg PO DAILY 02/20/18 02/20/18 History Vision Vitamin(Unknown) 1 tab PO BID 02/20/18 02/20/18 History Allergies Allergy/AdvReac Type Severity Reaction Status Date / Time No Known Allergies Allergy Unverified 02/20/18 19:29 Physical Exam Vitals: Vital Signs Temp Pulse Pulse Resp BP BP Pulse Ox 02/23/18 06:09 96.9 F L 77 17 120/65 97 02/22/18 23:00 98.3 F 81 17 131/59 97 02/22/18 20:21 66 02/22/18 20:11 64 02/22/18 16:00 75 16 02/22/18 14:42 97.0 F L 75 16 154/90 98 02/22/18 12:14 66 02/22/18 12:06 66 Intake and Output 02/22/18 02/23/18 02/23/18 22:59 06:59 14:59 Other: Voiding Method Toilet Urinal # Voids 1 1 - Constitutional General appearance: no acute distress - Respiratory Respiratory: bilateral: CTA - Cardiovascular Rhythm: regular Heart sounds: normal: S1, S2 Abnormal Heart Sounds: systolic murmur Results 02/20/18 19:46 02/22/18 10:08 Current Medications Generic Name Dose Route Start Last Admin Trade Name Freq PRN Reason Stop Dose Admin Albuterol/Ipratropium 3 ml 02/21/18 21:04 02/23/18 08:52 Duoneb 0.5 Mg-3 Mg/3 Ml Soln INHALATION Not Given RT-QID ANTONIA Aspirin 81 mg 02/22/18 09:00 02/23/18 07:51 Aspirin PO 81 mg DAILY ANTONIA Administration Carvedilol 3.125 mg 02/21/18 21:15 02/23/18 07:51 Coreg PO 3.125 mg BID-W/MEALS ANTONIA Administration Cefdinir 300 mg 02/21/18 21:15 02/23/18 07:51 Omnicef PO 300 mg BID ANTONIA Administration Enoxaparin Sodium 40 mg 02/21/18 21:15 02/22/18 20:48 Lovenox SQ 40 mg HS ANTONIA Administration Isosorbide Mononitrate 30 mg 02/23/18 11:15 Imdur PO DAILY NATONIA Levothyroxine Sodium 100 mcg 02/21/18 06:30 02/23/18 06:26 Synthroid PO 100 mcg DAILY@0630 ANTONIA Administration Lisinopril 2.5 mg 02/22/18 09:00 02/23/18 07:51 Zestril PO 2.5 mg DAILY ANTONIA Administration Memantine 10 mg 02/21/18 09:00 02/23/18 07:51 Namenda PO 10 mg BID ANTONIA Administration Miscellaneous Information 1 each 02/20/18 21:38 Pneumonia Protocol Utilized PO ONCE PRN Per Protocol Multivitamins 1 each 02/21/18 21:00 02/22/18 20:49 Theragran PO 1 each HS ANTONIA Administration Sertraline HCl 25 mg 02/21/18 09:00 02/23/18 07:52 Zoloft PO 25 mg DAILY ANTONIA Administration Spironolactone 12.5 mg 02/23/18 09:00 02/23/18 07:52 Aldactone PO 12.5 mg DAILY ANTONIA Administration Intake and Output 02/22/18 02/23/18 02/23/18 22:59 06:59 14:59 Other: Voiding Method Toilet Urinal # Voids 1 1 02/20/18 19:46 02/22/18 10:08 Assessment and Plan Assessment: Assessment #1 exertional dyspnea likely to be cardiac related #2 severe underlying CAD and status post CABG #3 severe ischemic cardiomyopathy #4 multiple comorbid conditions Plan #1 conservative medical approach to start with #2 I am going to add oral nitrates to the current medical regimen #3 follow-up with the patient.
[2018-02-23] MEDS: ISOSORBIDE MONONITRATE ER 30 MG TAB.ER.24H PO SCH (12:03)
--- NOTE | 2018-02-23 13:29 | P.PN ---
Subjective Progress Note Date: 02/23/18 Principal diagnosis: Dyspnea - unclear etiology Mr. Lopez is a 87-year-old male with a past medical history of coronary artery disease status post CABG coming to the hospital with a chief complaint of difficulty in treating. Patient mostly experiences exertional dyspnea. He has been treated for pneumonia couple of times as outpatient but did not show significant improvement in his symptoms. Today the patient is sitting up in a chair unassisted bedside, appears to be no acute distress. His family members are at the bedside. Patient states that his shortness of breath is still the same, which she says mostly he has it with minimal exertion. Patient denies any cough or sputum production. Denies having any palpitations. Patient denies having lower extremity edema. Denies having any fevers chills or rigors. No pain nausea vomiting or diarrhea. no dysuria or hematuria. Medications medications have been reviewed- dear Knepp, aspirin, Coreg, Omnicef , Lovenox, Synthroid, Zestril, Namenda,multivitamin, Zoloft, spironolactone. Imdur that has been added by cardiology today. Objective - Vital Signs Vital signs: Vital Signs Temp 96.9 F L 02/23/18 06:09 Pulse 77 02/23/18 06:09 Resp 17 02/23/18 06:09 BP 120/65 02/23/18 06:09 Pulse Ox 97 02/23/18 06:09 Intake & Output 02/22/18 02/23/18 02/23/18 18:59 06:59 18:59 Other: Voiding Method Toilet Urinal # Voids 2 1 - Exam GENERAL EXAM GEN. APPEARANCE: alert, in no apparent distress HEAD EXAM: atraumatic, normocephalic, normal inspection EYE EXAM: normal appearance, PERRL, EOMI. Absent: scleral icterus, conjunctival injection, periorbital swelling ENT EXAM: normal exam, mucous membranes moist NECK EXAM: normal inspection. Absent: tenderness, meningismus, full ROM, lymphadenopathy RESPIRATORY EXAM: decreased breath sounds bilaterally with coarse breath sounds. No wheezes or crackles. CARDIOVASCULAR EXAM: regular rate, normal rhythm, normal heart sounds. Absent : systolic murmur, diastolic murmur, rubs, gallop, clicks GI/ABDOMINAL EXAM: soft, normal bowel sounds. Absent: distended, tenderness, guarding, rebound, rigid EXTREMITIES EXAM: normal inspection, full ROM, normal capillary refill. Absent : tenderness, pedal edema, joint swelling, calf tenderness BACK EXAM: normal inspection NEUROLOGICAL EXAM: alert, oriented X3, CN II-XII intact, motor sensory deficit PSYCHIATRIC EXAM: normal affect, normal mood SKIN EXAM: warm, dry, intact, normal color. Absent: rash - Labs CBC & Chem 7: 02/20/18 19:46 02/22/18 10:08 Labs: Microbiology - Last 24 Hours (Table) 02/20/18 19:46 Blood Culture - Preliminary Blood No Growth after 48 hours Assessment and Plan Assessment: ASSESSMENT Exertional dyspnea - most likely secondary to underlying coronary artery disease less likely pneumonia. 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 Patient clinically does not have any signs or symptoms suggestive of pneumonia. Cardiology Dr. Fernandes is seen the patient and started him on Imdur. We will continue with the rest of his medication regimen. The treatment plan was discussed with his daughters are at the bedside today in detail. Overall prognosis is poor.
[2018-02-23] MEDS: MULTIVITAMINS, THERA 1 EACH TAB PO SCH (20:53)
[2018-02-23] MEDS: ENOXAPARIN 40 MG/0.4 ML SYRINGE SQ SCH (20:53)
[2018-02-24] MEDS: LEVOTHYROXINE 100 MCG TAB PO SCH (06:38)
[2018-02-24] MEDS: IPRATROPIUM-ALBUTEROL 3 ML NEB INHALATION SCH ×4 (08:24→20:32)
[2018-02-24] MEDS: LISINOPRIL 2.5 MG TAB PO SCH (08:42)
[2018-02-24] MEDS: MEMANTINE 10 MG TAB PO SCH ×2 (08:42→21:10)
[2018-02-24] MEDS: CARVEDILOL 3.125 MG TAB PO SCH ×2 (08:42→17:13)
[2018-02-24] MEDS: SPIRONOLACTONE 25 MG TAB PO SCH (08:42)
[2018-02-24] MEDS: ISOSORBIDE MONONITRATE ER 30 MG TAB.ER.24H PO SCH (08:42)
--- NOTE | 2018-02-24 08:42 | P.PN ---
Subjective Progress Note Date: 02/24/18 Principal diagnosis: Shortness of breath This is a pleasant 87-year-old gentleman who sees Dr. Hernández in the office as an outpatient with a past medical history significant for CAD and status post CABG in 1995 with unknown details at this point, was admitted to the hospital with possible pneumonia.The patient was getting treated for pneumonia as an outpatient with no improvement in his symptoms. He was experiencing symptoms of shortness of breath with exertion. Normally the patient is very active and he walk his dog fume eyes every day without any issues. Lately according to him and his 2 daughters he has been short of breath even with minimal exertion. No chest pain or chest discomfort. No dizziness or lightheadedness. And no syncope. The cardiac enzymes were checked and came in to be unremarkable. The chest x-ray did not show any acute abnormalities. The echocardiogram revealed severe lead impaired LV function with EF around 35% with unknown if the cardiomyopathy is old or new at this point. The patient was seen and evaluated by Dr. Guajardo who does not think that the patient symptoms are lung related at this point. I am concerned about severe underlying coronary artery disease and shortness of breath is angina equivalent. I do feel that the patient exertional dyspnea is angina and global and. Because of that, and because of the absence of any chest pain or discomfort, we will consider a conservative medical approach at this point of time. I did add isosorbide mononitrate to the current medical regimen yesterday. She continues to have symptoms with shortness of breath with minimal exertion I with consider adding Ranexa. We'll continue following up with him. Objective - Vital Signs Vital signs: Vital Signs Temp 98.6 F 02/24/18 06:05 Pulse 68 02/24/18 08:25 Resp 17 02/24/18 06:05 BP 104/57 02/24/18 06:05 Pulse Ox 98 02/24/18 08:25 Intake & Output 02/23/18 02/24/18 02/24/18 18:59 06:59 18:59 Other: # Voids 2 2 - Constitutional General appearance: Present: no acute distress - Respiratory Respiratory: bilateral: CTA - Cardiovascular Rhythm: regular Heart sounds: normal: S1, S2 - Labs CBC & Chem 7: 02/20/18 19:46 02/22/18 10:08 Labs: Microbiology - Last 24 Hours (Table) 02/20/18 19:46 Blood Culture - Preliminary Blood No Growth after 72 hours Assessment and Plan Assessment: Assessment #1 exertional dyspnea likely to be cardiac related #2 severe underlying CAD and status post CABG #3 severe ischemic cardiomyopathy #4 multiple comorbid conditions Plan #1 conservative medical approach to start with #2 we did add oral nitrates yesterday. We'll continue that. #3 follow-up with the patient.
[2018-02-24] MEDS: ASPIRIN 81 MG PO SCH (08:43)
[2018-02-24] MEDS: SERTRALINE 25 MG TAB PO SCH (08:43)
[2018-02-24] MEDS: CEFDINIR 300 MG CAP PO SCH (08:43)
[2018-02-24 15:21] VITALS: RESP 18
--- NOTE | 2018-02-24 16:53 | P.PN ---
Subjective Progress Note Date: 02/24/18 Principal diagnosis: Dyspnea - unclear etiology Mr. Lopez is a 87-year-old male with a past medical history of coronary artery disease status post CABG coming to the hospital with a chief complaint of difficulty in treating. Patient mostly experiences exertional dyspnea. He has been treated for pneumonia couple of times as outpatient but did not show significant improvement in his symptoms. On 02/24/18 - Patient states that his shortness of breath is still the same, which she says mostly he has it with minimal exertion. Patient denies any cough or sputum production. Denies having any palpitations. Patient denies having lower extremity edema. Denies having any fevers chills or rigors. No pain nausea vomiting or diarrhea. no dysuria or hematuria. Medications medications have been reviewed- dear Knepp, aspirin, Coreg, Omnicef , Lovenox, Synthroid, Zestril, Namenda,multivitamin, Zoloft, spironolactone. Imdur that has been added by cardiology yesterday. Objective - Vital Signs Vital signs: Vital Signs Temp 98.3 F 02/24/18 15:00 Pulse 70 02/24/18 16:32 Resp 18 02/24/18 16:00 BP 100/49 02/24/18 15:00 Pulse Ox 97 02/24/18 16:18 Intake & Output 02/23/18 02/24/18 02/24/18 18:59 06:59 18:59 Other: Voiding Method Toilet Urinal # Voids 2 2 3 - Exam GENERAL EXAM GEN. APPEARANCE: alert, in no apparent distress HEAD EXAM: atraumatic, normocephalic, normal inspection EYE EXAM: No pallor or icterus ENT EXAM: normal exam, mucous membranes moist NECK EXAM: No lymphadenopathy RESPIRATORY EXAM: decreased breath sounds bilaterally with coarse breath sounds. No wheezes or crackles. CARDIOVASCULAR EXAM: regular rate, normal rhythm, normal heart sounds. Absent : systolic murmur, diastolic murmur, rubs, gallop, clicks GI/ABDOMINAL EXAM: soft, normal bowel sounds. Absent: distended, tenderness, guarding, rebound, rigid EXTREMITIES EXAM: normal inspection, full ROM, normal capillary refill. Absent : tenderness, pedal edema, joint swelling, calf tendernes NEUROLOGICAL EXAM: alert, oriented X3, no focal neurological deficits PSYCHIATRIC EXAM: normal affect, normal mood SKIN EXAM: warm, dry, intact, normal color. Absent: rash - Labs CBC & Chem 7: 02/20/18 19:46 02/22/18 10:08 Labs: Microbiology - Last 24 Hours (Table) 02/20/18 19:46 Blood Culture - Preliminary Blood No Growth after 72 hours Assessment and Plan Assessment: ASSESSMENT Exertional dyspnea - most likely secondary to underlying coronary artery disease less likely pneumonia. 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 Patient clinically does not have any signs or symptoms suggestive of pneumonia. Cardiology Dr. Fernandes has started him on Imdur. We will continue with the rest of his medication regimen. The treatment plan was discussed with his daughters are at the bedside today in detail. Overall prognosis is poor.
[2018-02-24] MEDS: ENOXAPARIN 40 MG/0.4 ML SYRINGE SQ SCH (21:10)
[2018-02-24] MEDS: MULTIVITAMINS, THERA 1 EACH TAB PO SCH (21:10)
[2018-02-25] MEDS: LEVOTHYROXINE 100 MCG TAB PO SCH (06:43)
[2018-02-25] MEDS: IPRATROPIUM-ALBUTEROL 3 ML NEB INHALATION SCH ×3 (07:39→16:25)
[2018-02-25] MEDS: ASPIRIN 81 MG PO SCH (08:28)
[2018-02-25] MEDS: SPIRONOLACTONE 25 MG TAB PO SCH (08:28)
[2018-02-25] MEDS: MEMANTINE 10 MG TAB PO SCH (08:29)
[2018-02-25] MEDS: SERTRALINE 25 MG TAB PO SCH (08:29)
[2018-02-25] MEDS: CARVEDILOL 3.125 MG TAB PO SCH ×2 (08:29→16:38)
[2018-02-25] MEDS: LISINOPRIL 2.5 MG TAB PO SCH (08:29)
[2018-02-25] MEDS: ISOSORBIDE MONONITRATE ER 30 MG TAB.ER.24H PO SCH (08:29)
[2018-02-25 10:42] LABS: Calcium 9.9 mg/dL (8.4-10.2); Potassium 5.2 mmol/L (3.5-5.1)
[2018-02-25 10:45] LABS: Basophils # (A) 0.1 k/uL (0-0.2); Basophils % (A) 1 %; Eosinophils # (A) 0.3 k/uL (0-0.7); Eosinophils % (A) 5 %; HCT 37.2 % (39.0-53.0); HGB 11.9 gm/dL (13.0-17.5); Hypochromasia Slight; Lymphocytes # (A) 1.6 k/uL (1.0-4.8); Lymphocytes % (A) 26 %; MCH 31.5 pg (25.0-35.0); MCHC 31.9 g/dL (31.0-37.0); MCV 98.7 fL (80.0-100.0); Mean Platelet Volume 7.1; Monocytes # (A) 0.5 k/uL (0-1.0); Monocytes % (A) 8 %; Neutrophils # (A) 3.6 k/uL (1.3-7.7); Neutrophils % (A) 58 %; Platelet Count 249 k/uL (150-450); RBC 3.77 m/uL (4.30-5.90); RDW 13.2 % (11.5-15.5); WBC 6.3 k/uL (3.8-10.6)
[2018-02-25 14:00] VITALS: BP 118/67; PULSE 70; TEMP 97.8
--- NOTE | 2018-02-25 15:29 | P.PN ---
Subjective Patient is seen and examined resting comfortably laying flat in bed. Past medical history significant for coronary artery disease status post bypass grafting 1993. He follows with Dr. Hernández in the office. Most recent echocardiogram performed in the office revealed mildly impaired left ventricular systolic function with ejection fraction 45-50%. Repeat on this admission reveals LV systolic function moderately impaired at 35-40% with basal inferior wall motion akinetic. He has been started on Imdur 30 mg daily, carvedilol 3.125 mg twice a day, Aldactone 12.5 mg daily and lisinopril 2.5 mg daily. Blood pressure 118/67 heart rate 70 afebrile maintaining oxygen saturation on room air. Laboratory data reviewed, hemoglobin 11.9, platelets 249, sodium 139, potassium 5.2, creatinine 0.91. He continues to complain of exertional shortness of breath, weakness and fatigue. He states he hasn't noticed much change in his symptoms since admission. He has been working with physical therapy. He states he is unable to get any rest secondary to his roommate. Objective - Vital Signs Vital signs: Vital Signs Temp 97.8 F 02/25/18 13:41 Pulse 70 02/25/18 13:41 Resp 18 02/25/18 13:41 BP 118/67 02/25/18 13:41 Pulse Ox 98 02/25/18 13:41 Intake & Output 02/24/18 02/25/18 02/25/18 18:59 06:59 18:59 Intake Total 800 700 Balance 800 700 Intake: Oral 800 700 Other: Voiding Method Toilet Toilet Urinal # Voids 3 1 3 # Bowel Movements 0 1 - Exam GENERAL: Well-appearing, well-nourished and in no acute distress. NECK: Supple without JVD or thyromegaly. LUNGS: Breath sounds clear to auscultation bilaterally. Respiration equal and unlabored. No wheezes, rales or rhonchi. Diminished bilaterally. HEART: Regular rate and rhythm with murmur at the base, no rubs or gallops. S1 and S2 heard. EXTREMITIES: Normal range of motion, no edema. No clubbing or cyanosis. Peripheral pulses intact. - Labs CBC & Chem 7: 02/25/18 09:22 02/25/18 09:22 Labs: Abnormal Lab Results - Last 24 Hours (Table) 02/25/18 02/25/18 Range/Units 09:22 09:22 RBC 3.77 L (4.30-5.90) m/uL Hgb 11.9 L (13.0-17.5) gm/dL Hct 37.2 L (39.0-53.0) % Potassium 5.2 H (3.5-5.1) mmol/L BUN 26 H (9-20) mg/dL Microbiology - Last 24 Hours (Table) 02/20/18 19:46 Blood Culture - Preliminary Blood No Growth after 96 hours Assessment and Plan Assessment: ASSESSMENT Exertional dyspnea likely cardiac related Severe underlying coronary artery disease Ischemic cardiomyopathy Multiple comorbid conditions PLAN Indur was added yesterday and he is tolerating. He continues to feel weak and fatigued. Continue with imdur and increase activity. Will consider adding ranexa down the road as an outpatient in the next couple of weeks if symptoms persist. Follow up with Dr. Hernández in 2 weeks. Nurse Practitioner note has been reviewed, I agree with a documented findings and plan of care. Patient was seen and examined.
--- NOTE | 2018-02-25 15:48 | P.DS ---
Providers Date of admission: 02/20/18 21:38 Expected date of discharge: 02/25/18 Attending physician: Malcolm Mcknight Consults: 02/20/18 21:38 Consult Physician Routine Consulting Provider: Santo Guajardo Consult Reason/Comments: Dyspnea; Pneumonia Do you want consulting provider notified?: Yes 02/22/18 12:26 Consult Physician Routine Consulting Provider: Christine Larios Consult Reason/Comments: cad-easily tired Do you want consulting provider notified?: Yes 02/22/18 15:39 Consult Physician Routine Consulting Provider: Diallo Hernández Consult Reason/Comments: Cardiomyopathy Do you want consulting provider notified?: Yes Primary care physician: [facility] Course: Mr. Lopez is a 87-year-old male with a past medical history of coronary artery disease status post CABG coming to the hospital with a chief complaint of difficulty in treating. Patient mostly experiences exertional dyspnea. He has been treated for pneumonia couple of times as outpatient but did not show significant improvement in his symptoms. During the hospital stay the patient was continued on antibiotics for couple of days. But his shortness of breath was mostly related to his underlying coronary artery disease rather than pneumonia. His antibiotics have been discontinued. Cardiology has been consulted. Patient has been started on Coreg and lisinopril spironolactone Imdur after which the patient showed some improvement in his exertional dyspnea. The patient's progress was discussed with the family members at bedside on an everyday basis. Eventually the decision was made by the patient and his family members for him to be transferred to a rehab center. sex worker or escort on board and discussed with the family members regarding the place. Patient is being discharged to [facility]. status at the time of discharge temperature 97.8, heart rate 70, respiratory rate 18, blood pressure 1 18 x 67, saturating at 98% on room air. Patient's physical exam GEN. APPEARANCE: alert, in no apparent distress HEAD EXAM: atraumatic, normocephalic, normal inspection EYE EXAM: No pallor or icterus ENT EXAM: normal exam, mucous membranes moist NECK EXAM: No lymphadenopathy RESPIRATORY EXAM: decreased breath sounds bilaterally with coarse breath sounds. No wheezes or crackles. CARDIOVASCULAR EXAM: S1 an S2 heard no additional sounds GI/ABDOMINAL EXAM: Soft nontender no organomegaly bowel sounds are positive EXTREMITIES EXAM: No edema NEUROLOGICAL EXAM: alert, oriented X3, no focal neurological deficits PSYCHIATRIC EXAM: normal affect, normal mood DISCHARGE DIAGNOSIS Exertional dyspnea - most likely secondary to underlying coronary artery disease less likely pneumonia. 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 Patient is being discharged on Coreg, lisinopril, spironolactone and Imdur. He is advised to follow-up with cardiology and his PCP in 3-4 days. More than 30 minutes spent towards the discharge of the patient. Patient Condition at Discharge: Serious Plan - Discharge Summary Discharge Rx Participant: No New Discharge Prescriptions: New Carvedilol [Coreg] 3.125 mg PO BID-W/MEALS #60 tab Isosorbide Mononitrate ER [Imdur] 30 mg PO DAILY #30 tab.er.24h Lisinopril [Zestril] 2.5 mg PO DAILY #30 tab Spironolactone [Aldactone] 12.5 mg PO DAILY #30 tab Continue Aspirin 325 mg PO HS Vision Vitamin(Unknown) 1 tab PO BID Sertraline HCl [Zoloft] 25 mg PO DAILY [place]-3 Fatty Acids/Fish Oil [Fish Oil 1,000 mg Softgel] 1 cap PO BID Multivitamins, Thera [Multivitamin (formulary)] 1 tab PO HS Memantine [Namenda] 10 mg PO BID Levothyroxine Sodium 100 mcg PO DAILY Discharge Medication List Aspirin 325 mg PO HS 02/20/18 [History] Levothyroxine Sodium 100 mcg PO DAILY 02/20/18 [History] Memantine [Namenda] 10 mg PO BID 02/20/18 [History] Multivitamins, Thera [Multivitamin (formulary)] 1 tab PO HS 02/20/18 [History] [place]-3 Fatty Acids/Fish Oil [Fish Oil 1,000 mg Softgel] 1 cap PO BID 02/20/18 [ History] Sertraline HCl [Zoloft] 25 mg PO DAILY 02/20/18 [History] Vision Vitamin(Unknown) 1 tab PO BID 02/20/18 [History] Carvedilol [Coreg] 3.125 mg PO BID-W/MEALS #60 tab 02/25/18 [Rx] Isosorbide Mononitrate ER [Imdur] 30 mg PO DAILY #30 tab.er.24h 02/25/18 [Rx] Lisinopril [Zestril] 2.5 mg PO DAILY #30 tab 02/25/18 [Rx] Spironolactone [Aldactone] 12.5 mg PO DAILY #30 tab 02/25/18 [Rx] Follow up Appointment(s)/Referral(s): Manuel Gordon MD [STAFF PHYSICIAN] - 1 Week David Benavidez MD [Primary Care Provider] - 1-2 days [facility], [NON-STAFF] - As Needed
== END 2018-02-25 17:02 | DRG 303 ==
LOC: EC 18:48 → 4MS4W 21:38
PROVIDERS: ADMIT Hospitalist; ATTEND Hospitalist
DX: I25.119 Atherosclerotic heart disease of native coronary artery with unspecified angina pectoris (principal); I50.22 Chronic systolic (congestive) heart failure; E44.1 Mild protein-calorie malnutrition; Z68.1 Body mass index [BMI] 19.9 or less, adult; E86.0 Dehydration; G30.1 Alzheimer's disease with late onset; F02.80 Dementia in other diseases classified elsewhere, unspecified severity, without behavioral disturbance, psychotic disturbance, mood disturbance, and anxiety; I25.5 Ischemic cardiomyopathy; J98.4 Other disorders of lung; I45.10 Unspecified right bundle-branch block; I44.0 Atrioventricular block, first degree; M19.91 Primary osteoarthritis, unspecified site; E03.9 Hypothyroidism, unspecified; F32.9 Major depressive disorder, single episode, unspecified; Z72.820 Sleep deprivation; H91.90 Unspecified hearing loss, unspecified ear; Z79.82 Long term (current) use of aspirin; Z79.890 Hormone replacement therapy; Z79.899 Other long term (current) drug therapy; Z87.01 Personal history of pneumonia (recurrent); Z95.1 Presence of aortocoronary bypass graft; Z95.5 Presence of coronary angioplasty implant and graft; Z87.891 Personal history of nicotine dependence
CPT/HCPCS: 36415; 71046; 78582; 80048; 80053; 81003; 82550; 82553; 83880; 84484; 85025; 85379; 85610; 85730; 87040; 93005; 93306; 94010; 94640; 94760; 96365; 99285